=== PATIENT | male | born 1950 | race Caucasian/White ===

== ENCOUNTER 2022-01-15 00:07 | Inpatient (IN) ==
[2022-01-15 00:41] LABS: Basophils % 0.7 %; Hematocrit 36.9 % (37.5-50.1); Hemoglobin 12.8 g/dL (12.9-16.9); Immature Granulocytes % 1.3 % (0-4); Lymphocytes # 0.3 K/mcL (0.6-4.6); Lymphocytes % 8.5 %; Mean Corpuscular HGB Conc 34.7 g/dL (31.6-35.5); Mean Corpuscular Hemoglobin 27.8 pg (28.0-33.3); Mean Corpuscular Volume 80.2 fL (83.0-100.0); Mean Platelet Volume 9.1 fL (9.4-12.4); Monocytes # 0.1 K/mcL (0.0-1.3); Monocytes % 2.6 %; Platelet Count 261 K/mcL (140-400); Red Cell Distribution Width 21.1 % (11.5-14.5); Segmented Neutrophils % 85.9 %
[2022-01-15 00:42] LABS: Neutrophils # 2.7 K/mcL (1.6-8.9); White Blood Count 3.1 K/mcL (4.3-11.1)
[2022-01-15] MEDS ORDERED: Iopamidol - 370 500 ML MLS IVP ONE ×2 (01:02→02:12)
[2022-01-15 01:05] LABS: Alanine Aminotransferase 12 Units/L (7-52); Albumin 3.2 g/dL (3.5-5.7); Albumin/Globulin Ratio 1.2 (1.1-2.2); Alkaline Phosphatase 55 Units/L (34-104); Aspartate Amino Transferase 16 Units/L (13-39); BUN/Creatinine Ratio 30 (6-26); Bilirubin,Total 1.3 mg/dL (0.3-1.0); Blood Urea Nitrogen 22 mg/dL (8-23); Calcium 8.7 mg/dL (8.6-10.3); Carbon Dioxide 23 mEq/L (23-29); Chloride 95 mEq/L (98-107); Globulin 2.7 g/dL (2.4-3.5); Glucose 132 mg/dL (70-105); Magnesium 1.9 mg/dL (1.6-2.6); Osmolality,Calculated 279 (280-300); Phosphorous 3.4 mg/dL (2.7-4.5); Potassium 3.6 mEq/L (3.5-5.1); Sodium 132 mEq/L (136-145); Total Protein 5.9 g/dL (6.4-8.9); Uric Acid 8.4 mg/dL (2.3-7.6)
[2022-01-15 01:06] LABS: Troponin I 0.03 ng/mL (< 0.04)
[2022-01-15] MEDS ORDERED: 0.9 % Sodium Chloride 1,000 ML IVC ONE (01:36)
[2022-01-15 01:51] LABS: VBG HCO3 23 mEq/L (21-27); VBG PCO2 38 mmHg (41-51); VBG PO2 42 mmHg (25-50)
[2022-01-15 02:31] LABS: Adenovirus Not Detected (Not Detect); Bordetella Pertussis Not Detected (Not Detect); Chlamydophila pneumoniae Not Detected (Not Detect); Coronavirus 229E Not Detected (Not Detect); Coronavirus HKU1 Not Detected (Not Detect); Coronavirus NL63 Not Detected (Not Detect); Coronavirus OC43 Not Detected (Not Detect); Human Metapneumovirus Not Detected (Not Detect); Human Rhinovirus/Enterovirus Not Detected (Not Detect); Influenza A Subtype 2009 H1 Not Detected (Not Detect); Influenza B Not Detected (Not Detect); Mycoplasma pneumoniae Not Detected (Not Detect); Parainfluenza Virus 1 Not Detected (Not Detect); Parainfluenza Virus 2 Not Detected (Not Detect); Parainfluenza Virus 3 Not Detected (Not Detect); Parainfluenza Virus 4 Not Detected (Not Detect); Respiratory Syncytial Virus Not Detected (Not Detect); SARS-CoV-2 Not Detected (Not Detect)
[2022-01-15 03:26] LABS: Bilirubin,Urine Negative (Negative); Blood,Urine Large (Negative); Clarity,Urine Turbid (Clear); Color,Urine Yellow (Yellow); Glucose,Urine (UA) Normal (Normal); Ketones,Urine 60 mg/dL (Negative); Leukocyte Esterase,Urine Negative (Negative); Mucus,Urine Few per lpf (None-Few); Nitrite,Urine Negative (Negative); Protein,Urine 50 mg/dL (Neg-Trace); RBC,Urine TNTC per hpf (0-3); Specific Gravity,Urine > 1.030 (1.010-1.025); Urobilinogen,Urine Normal (Normal)
[2022-01-15] MEDS ORDERED: cefTRIAXone 1,000 MG in Water for inj. (sterile) 10 ML IVP ONE (03:55)
[2022-01-15] MEDS ORDERED: Naloxone 0.4 MG/ML INJ IVP PRN (05:22)
[2022-01-15 07:35] LABS: Bilirubin,Direct 0.5 mg/dL (0.0-0.2); Bilirubin,Indirect 0.6 mg/dL (0.0-1.0); Bilirubin,Total 1.1 mg/dL (0.3-1.0)
[2022-01-15 07:37] LABS: Magnesium 1.8 mg/dL (1.6-2.6)
[2022-01-15 07:49] LABS: Thyroid Stimulating Hormone 1.472 mcIU/mL (0.340-5.600)
[2022-01-15] MEDS ORDERED: Cefepime HCl 2,000 MG in 0.9 % Sodium Chloride 10 ML IVP SCH (08:00)
[2022-01-15] MEDS: Vancomycin Oral Soln 125 MG/2.5 ML UDC PO SCH ×4 (08:10→21:01)
[2022-01-15] MEDS: Ringers Solution, Lactated 1,000 ML IVC SCH ×2 (08:18→21:00)
[2022-01-15] MEDS: *HR* Heparin 5,000 UNIT/ML VIAL SQ SCH ×3 (08:23→21:01)
[2022-01-15] MEDS: Piperacillin/Tazobactam 3.375 GM in 0.9 % Sodium Chloride Mini Bag 100 ML IVPB SCH ×2 (08:26→17:27)
[2022-01-15] MEDS ORDERED: Diphenoxylate/Atropine 1 TAB TABLET PO ONE (09:18)
[2022-01-15] MEDS ORDERED: 0.9 % Sodium Chloride 1,000 ML IV ONE ×2 (13:25→16:30)
[2022-01-16] MEDS: Piperacillin/Tazobactam 3.375 GM in 0.9 % Sodium Chloride Mini Bag 100 ML IVPB SCH ×3 (00:10→16:01)
[2022-01-16 03:30] LABS: Hematocrit 32.6 % (37.5-50.1); Hemoglobin 11.1 g/dL (12.9-16.9); Mean Corpuscular Hemoglobin 27.8 pg (28.0-33.3); Mean Corpuscular Volume 81.7 fL (83.0-100.0); Mean Platelet Volume 9.6 fL (9.4-12.4); Monocytes # 0.1 K/mcL (0.0-1.3); Platelet Count 208 K/mcL (140-400); Red Blood Count 3.99 M/mcL (4.19-5.50); Red Cell Distribution Width 21.1 % (11.5-14.5); White Blood Count 3.1 K/mcL (4.3-11.1)
[2022-01-16 03:48] LABS: Alanine Aminotransferase 12 Units/L (7-52); Albumin 2.6 g/dL (3.5-5.7); Albumin/Globulin Ratio 1.2 (1.1-2.2); Alkaline Phosphatase 44 Units/L (34-104); Aspartate Amino Transferase 18 Units/L (13-39); BUN/Creatinine Ratio 29 (6-26); Bilirubin,Total 1.2 mg/dL (0.3-1.0); Blood Urea Nitrogen 15 mg/dL (8-23); Calcium 7.3 mg/dL (8.6-10.3); Carbon Dioxide 20 mEq/L (23-29); Chloride 102 mEq/L (98-107); Globulin 2.1 g/dL (2.4-3.5); Glucose 106 mg/dL (70-105); Osmolality,Calculated 279 (280-300); Potassium 3.5 mEq/L (3.5-5.1); Sodium 134 mEq/L (136-145); Total Protein 4.7 g/dL (6.4-8.9)
[2022-01-16 04:22] LABS: Eosinophils # 0.1 K/mcL (0.0-0.6); Lymphocytes # 0.3 K/mcL (0.6-4.6); Neutrophils # 2.7 K/mcL (1.6-8.9); Platelet Estimate Normal (Normal)
[2022-01-16 04:23] LABS: Anisocytosis 1+ (Not Present); Poikilocytosis 1+ (Not Present)
[2022-01-16] MEDS: *HR* Heparin 5,000 UNIT/ML VIAL SQ SCH ×3 (06:14→21:57)
[2022-01-16] MEDS: Vancomycin Oral Soln 125 MG/2.5 ML UDC PO SCH ×4 (08:26→21:58)
[2022-01-16] MEDS: Metoprolol XL (24 HR) Succ 50 MG TAB.ER.24H PO SCH (08:27)
[2022-01-16] MEDS: Aspirin Enteric Coated 81 MG Tablet PO SCH (08:27)
[2022-01-16] MEDS: 0.9 % Sodium Chloride 1,000 ML IVC SCH ×2 (11:26→16:00)
[2022-01-16] MEDS: Cholestyramine 4 GM POWD.PACK PO SCH ×2 (11:26→16:01)
[2022-01-16] MEDS ORDERED: 0.9 % Sodium Chloride 1,000 ML IV ONE (11:46)
[2022-01-16] MEDS ORDERED: 0.9 % Sodium Chloride 1,000 ML IVC SCH (12:00)
[2022-01-16] MEDS ORDERED: *HR* Metoprolol 5 MG/5 ML VIAL IVP ONE (12:08)
[2022-01-16] MEDS ORDERED: *HR* Metoprolol 5 MG/5 ML VIAL IVP PRN (13:05)
[2022-01-16] MEDS ORDERED: Cholestyramine 4 GM POWD.PACK PO SCH (16:30)
[2022-01-16] MEDS: Famotidine 20 MG TABLET PO SCH (18:07)
[2022-01-16] MEDS ORDERED: Famotidine 20 MG TABLET PO SCH (21:00)
[2022-01-16] MEDS: Ondansetron ODT 4 MG TAB.RAPDIS SL PRN (23:41)
[2022-01-17] MEDS: Piperacillin/Tazobactam 3.375 GM in 0.9 % Sodium Chloride Mini Bag 100 ML IVPB SCH ×4 (00:59→23:22)
[2022-01-17] MEDS: 0.9 % Sodium Chloride 1,000 ML IVC SCH ×3 (04:02→17:32)
[2022-01-17] MEDS: *HR* Heparin 5,000 UNIT/ML VIAL SQ SCH ×3 (06:15→20:26)
[2022-01-17] MEDS: Cholestyramine 4 GM POWD.PACK PO SCH ×2 (06:15→17:18)
[2022-01-17] MEDS: Metoprolol XL (24 HR) Succ 50 MG TAB.ER.24H PO SCH (09:47)
[2022-01-17] MEDS: Famotidine 20 MG TABLET PO SCH ×2 (09:47→20:26)
[2022-01-17] MEDS: Aspirin Enteric Coated 81 MG Tablet PO SCH (09:47)
[2022-01-17] MEDS: Vancomycin Oral Soln 125 MG/2.5 ML UDC PO SCH ×4 (09:47→20:26)
[2022-01-17 15:58] LABS: Basophils % 0.8 %; Eosinophils % 0.4 %; Hematocrit 30.8 % (37.5-50.1); Hemoglobin 10.6 g/dL (12.9-16.9); Immature Granulocytes % 6.1 % (0-4); Lymphocytes # 0.1 K/mcL (0.6-4.6); Lymphocytes % 5.7 %; Mean Corpuscular HGB Conc 34.4 g/dL (31.6-35.5); Mean Corpuscular Volume 81.3 fL (83.0-100.0); Mean Platelet Volume 9.7 fL (9.4-12.4); Monocytes # 0.1 K/mcL (0.0-1.3); Monocytes % 4.5 %; Platelet Count 170 K/mcL (140-400); Red Blood Count 3.79 M/mcL (4.19-5.50); Red Cell Distribution Width 21.2 % (11.5-14.5); Segmented Neutrophils % 82.5 %; White Blood Count 2.5 K/mcL (4.3-11.1)
[2022-01-17 16:01] LABS: Neutrophils # 2.1 K/mcL (1.6-8.9)
[2022-01-17 16:21] LABS: BUN/Creatinine Ratio 28 (6-26); Blood Urea Nitrogen 20 mg/dL (8-23); Calcium 7.1 mg/dL (8.6-10.3); Carbon Dioxide 18 mEq/L (23-29); Chloride 101 mEq/L (98-107); Glucose 103 mg/dL (70-105); Magnesium 1.6 mg/dL (1.6-2.6); Osmolality,Calculated 273 (280-300); Phosphorous 2.6 mg/dL (2.7-4.5); Potassium 3.5 mEq/L (3.5-5.1); Sodium 130 mEq/L (136-145)
[2022-01-17 16:43] LABS: Acanthocytes 1+ (Not Present)
[2022-01-17] MEDS: Budesonide/Formoterol 160/4.5 1 PUFF INH IH SCH (21:57)
[2022-01-18] MEDS: *HR* Heparin 5,000 UNIT/ML VIAL SQ SCH ×3 (05:12→20:22)
[2022-01-18] MEDS: Budesonide/Formoterol 160/4.5 1 PUFF INH IH SCH ×2 (07:31→19:59)
[2022-01-18] MEDS: Loratadine 10 MG TABLET PO SCH (09:53)
[2022-01-18] MEDS: Vancomycin Oral Soln 125 MG/2.5 ML UDC PO SCH ×4 (09:53→20:22)
[2022-01-18] MEDS: Aspirin Enteric Coated 81 MG Tablet PO SCH (09:53)
[2022-01-18] MEDS: Metoprolol XL (24 HR) Succ 50 MG TAB.ER.24H PO SCH (09:53)
[2022-01-18] MEDS: Famotidine 20 MG TABLET PO SCH ×2 (09:53→20:22)
[2022-01-18] MEDS: Piperacillin/Tazobactam 3.375 GM in 0.9 % Sodium Chloride Mini Bag 100 ML IVPB SCH (09:55)
[2022-01-18] MEDS: 0.9 % Sodium Chloride 1,000 ML IVC SCH ×2 (09:55→13:05)
[2022-01-18] MEDS: Cholestyramine 4 GM POWD.PACK PO SCH ×4 (10:09→20:22)
[2022-01-18] MEDS ORDERED: Iopamidol - 370 500 ML MLS IVP ONE (10:52)
[2022-01-18] MEDS ORDERED: 0.9 % Sodium Chloride 1,000 ML IVC ONE (10:54)
[2022-01-18] MEDS: Lactobacillus 1 EACH CAP.SPRINK PO SCH ×2 (12:03→20:22)
[2022-01-19] MEDS: 0.9 % Sodium Chloride 1,000 ML IVC SCH ×2 (01:19→11:00)
[2022-01-19 03:44] LABS: BUN/Creatinine Ratio 18 (6-26); Blood Urea Nitrogen 12 mg/dL (8-23); Calcium 7.5 mg/dL (8.6-10.3); Carbon Dioxide 20 mEq/L (23-29); Chloride 101 mEq/L (98-107); Glucose 102 mg/dL (70-105); Magnesium 2.1 mg/dL (1.6-2.6); Osmolality,Calculated 274 (280-300); Potassium 3.9 mEq/L (3.5-5.1); Sodium 132 mEq/L (136-145)
[2022-01-19] MEDS: *HR* Heparin 5,000 UNIT/ML VIAL SQ SCH ×3 (05:00→20:48)
[2022-01-19] MEDS: Budesonide/Formoterol 160/4.5 1 PUFF INH IH SCH ×2 (07:14→20:11)
[2022-01-19] MEDS: Cholestyramine 4 GM POWD.PACK PO SCH ×4 (07:35→20:47)
[2022-01-19] MEDS: Famotidine 20 MG TABLET PO SCH ×2 (07:36→20:48)
[2022-01-19] MEDS: Loratadine 10 MG TABLET PO SCH (07:36)
[2022-01-19] MEDS: Lactobacillus 1 EACH CAP.SPRINK PO SCH ×2 (07:36→20:47)
[2022-01-19] MEDS: Metoprolol XL (24 HR) Succ 50 MG TAB.ER.24H PO SCH (07:36)
[2022-01-19] MEDS: Aspirin Enteric Coated 81 MG Tablet PO SCH (07:36)
[2022-01-19] MEDS: Vancomycin Oral Soln 125 MG/2.5 ML UDC PO SCH ×4 (07:37→20:47)
[2022-01-19 10:47] LABS: Hematocrit 31.2 % (37.5-50.1); Hemoglobin 10.9 g/dL (12.9-16.9); Mean Corpuscular HGB Conc 34.9 g/dL (31.6-35.5); Mean Corpuscular Hemoglobin 28.2 pg (28.0-33.3); Mean Corpuscular Volume 80.8 fL (83.0-100.0); Mean Platelet Volume 9.9 fL (9.4-12.4); Platelet Count 188 K/mcL (140-400); Red Blood Count 3.86 M/mcL (4.19-5.50)
[2022-01-19 11:11] LABS: BUN/Creatinine Ratio 19 (6-26); Blood Urea Nitrogen 12 mg/dL (8-23); Calcium 7.5 mg/dL (8.6-10.3); Carbon Dioxide 19 mEq/L (23-29); Chloride 102 mEq/L (98-107); Glucose 124 mg/dL (70-105); Osmolality,Calculated 273 (280-300); Potassium 3.9 mEq/L (3.5-5.1); Sodium 131 mEq/L (136-145)
[2022-01-20] MEDS: *HR* Heparin 5,000 UNIT/ML VIAL SQ SCH ×3 (03:09→22:23)
[2022-01-20 03:33] LABS: Basophils % 0.5 %; Eosinophils % 0.1 %; Hematocrit 31.9 % (37.5-50.1); Hemoglobin 11.1 g/dL (12.9-16.9); Immature Granulocytes % 1.8 % (0-4); Lymphocytes # 0.1 K/mcL (0.6-4.6); Lymphocytes % 1.2 %; Mean Corpuscular HGB Conc 34.8 g/dL (31.6-35.5); Mean Corpuscular Hemoglobin 27.8 pg (28.0-33.3); Mean Corpuscular Volume 79.9 fL (83.0-100.0); Mean Platelet Volume 9.9 fL (9.4-12.4); Monocytes # 0.8 K/mcL (0.0-1.3); Monocytes % 11.2 %; Neutrophils # 6.3 K/mcL (1.6-8.9); Nucleated Red Blood Cells 0.3 /100 WBC (0); Platelet Count 210 K/mcL (140-400); Red Blood Count 3.99 M/mcL (4.19-5.50); Red Cell Distribution Width 22.1 % (11.5-14.5); Segmented Neutrophils % 85.2 %; White Blood Count 7.4 K/mcL (4.3-11.1)
[2022-01-20 03:43] LABS: BUN/Creatinine Ratio 18 (6-26); Blood Urea Nitrogen 12 mg/dL (8-23); Calcium 7.5 mg/dL (8.6-10.3); Carbon Dioxide 19 mEq/L (23-29); Chloride 102 mEq/L (98-107); Glucose 131 mg/dL (70-105); Magnesium 1.8 mg/dL (1.6-2.6); Osmolality,Calculated 272 (280-300); Potassium 3.8 mEq/L (3.5-5.1); Sodium 130 mEq/L (136-145)
[2022-01-20 05:05] LABS: Anisocytosis 3+ (Not Present); Burr Cells 1+ (Not Present); Hypochromasia Present (Not Present); Platelet Estimate Normal (Normal); Toxic Granulation Present (Not Present)
[2022-01-20] MEDS: Aspirin Enteric Coated 81 MG Tablet PO SCH (07:33)
[2022-01-20] MEDS: Metoprolol XL (24 HR) Succ 50 MG TAB.ER.24H PO SCH (07:33)
[2022-01-20] MEDS: Famotidine 20 MG TABLET PO SCH ×2 (07:33→22:22)
[2022-01-20] MEDS: Cholestyramine 4 GM POWD.PACK PO SCH ×4 (07:33→22:23)
[2022-01-20] MEDS: Lactobacillus 1 EACH CAP.SPRINK PO SCH ×2 (07:33→22:22)
[2022-01-20] MEDS: Vancomycin Oral Soln 125 MG/2.5 ML UDC PO SCH ×4 (07:33→22:54)
[2022-01-20] MEDS: Loratadine 10 MG TABLET PO SCH (07:33)
[2022-01-20] MEDS: Budesonide/Formoterol 160/4.5 1 PUFF INH IH SCH ×2 (07:58→20:16)
[2022-01-20] MEDS ORDERED: 0.9 % Sodium Chloride 1,000 ML IVC ONE (11:49)
[2022-01-20] MEDS ORDERED: 0.9 % Sodium Chloride 1,000 ML ONE (11:54)
[2022-01-20] MEDS ORDERED: 0.9 % Sodium Chloride 1,000 ML IVC SCH (14:15)
[2022-01-20] MEDS: D5% in 0.9% NACL 1,000 ML IVC SCH (15:43)
[2022-01-20] MEDS: *HR* OxyCODONE Immed Rel 5 MG TABLET PO PRN (22:53)
[2022-01-21 00:42] LABS: Adenovirus F 40/41 PCR Not detected (Not detect); Astrovirus PCR Not detected (Not detect); C.difficile Toxin A/B Gene PCR Not detected (Not detect); Campylobacter by PCR Not detected (Not detect); Cryptosporidium by PCR Not detected (Not detect); Cyclospora cayetanensis PCR Not detected (Not detect); Entamoeba histolytica PCR Not detected (Not detect); Enteroaggregative E.coli(EAEC) Not detected (Not detect); Enteropathogenic E.coli(EPEC) Not detected (Not detect); Enterotoxigenic E.coli (ETEC) Not detected (Not detect); Giardia lamblia PCR Not detected (Not detect); Norovirus GI/GII PCR Not detected (Not detect); Plesiomonas shigelloides PCR Not detected (Not detect); Rotavirus A PCR Not detected (Not detect); Salmonella PCR Not detected (Not detect); Sapovirus PCR Not detected (Not detect); Shig/EnteroinvasiveE coli EIEC Not detected (Not detect); Shigalike tox-prod E coli STEC Not detected (Not detect); Vibrio PCR Not detected (Not detect); Vibrio cholerae PCR Not detected (Not detect); Yersinia enterocolitica PCR Not detected (Not detect)
[2022-01-21] MEDS: D5% in 0.9% NACL 1,000 ML IVC SCH ×3 (02:05→21:22)
[2022-01-21 04:13] LABS: Hematocrit 35.8 % (37.5-50.1); Hemoglobin 12.3 g/dL (12.9-16.9); Mean Corpuscular HGB Conc 34.4 g/dL (31.6-35.5); Mean Corpuscular Hemoglobin 27.9 pg (28.0-33.3); Mean Corpuscular Volume 81.2 fL (83.0-100.0); Nucleated Red Blood Cells 0.5 /100 WBC (0); Platelet Count 213 K/mcL (140-400); Red Blood Count 4.41 M/mcL (4.19-5.50); Red Cell Distribution Width 23.9 % (11.5-14.5); White Blood Count 6.2 K/mcL (4.3-11.1)
[2022-01-21 04:30] LABS: BUN/Creatinine Ratio 16 (6-26); Blood Urea Nitrogen 13 mg/dL (8-23); Calcium 7.1 mg/dL (8.6-10.3); Carbon Dioxide 18 mEq/L (23-29); Chloride 103 mEq/L (98-107); Glucose 196 mg/dL (70-105); Osmolality,Calculated 276 (280-300); Sodium 130 mEq/L (136-145)
[2022-01-21 05:02] LABS: Burr Cells 1+ (Not Present); Lymphocytes # 0.7 K/mcL (0.6-4.6); Monocytes # 0.4 K/mcL (0.0-1.3); Neutrophils # 5.1 K/mcL (1.6-8.9); Platelet Estimate Normal (Normal)
[2022-01-21] MEDS: *HR* Heparin 5,000 UNIT/ML VIAL SQ SCH ×3 (05:36→21:20)
[2022-01-21] MEDS: Aspirin Enteric Coated 81 MG Tablet PO SCH (07:42)
[2022-01-21] MEDS: Famotidine 20 MG TABLET PO SCH ×2 (07:42→21:19)
[2022-01-21] MEDS: Metoprolol XL (24 HR) Succ 50 MG TAB.ER.24H PO SCH (07:42)
[2022-01-21] MEDS: Lactobacillus 1 EACH CAP.SPRINK PO SCH ×2 (07:42→21:19)
[2022-01-21] MEDS: Vancomycin Oral Soln 125 MG/2.5 ML UDC PO SCH ×4 (07:42→21:19)
[2022-01-21] MEDS: Loratadine 10 MG TABLET PO SCH (07:42)
[2022-01-21] MEDS: Cholestyramine 4 GM POWD.PACK PO SCH ×4 (07:43→21:13)
[2022-01-21] MEDS: Budesonide/Formoterol 160/4.5 1 PUFF INH IH SCH ×2 (10:43→20:14)
[2022-01-21] MEDS: Hydrocortisone Acetate 25 MG RECTAL SUPPOSITORY RC SCH ×2 (12:54→21:18)
[2022-01-21] MEDS ORDERED: Lidocaine Jelly 11 ml Syringe TP ONE (13:58)
[2022-01-21] MEDS: Ondansetron ODT 4 MG TAB.RAPDIS SL PRN (19:22)
[2022-01-22] MEDS: *HR* Heparin 5,000 UNIT/ML VIAL SQ SCH ×3 (02:32→22:08)
[2022-01-22 02:59] LABS: Basophils % 0.4 %; Eosinophils % 0.2 %; Hematocrit 26.5 % (37.5-50.1); Immature Granulocytes % 0.9 % (0-4); Lymphocytes # 0.1 K/mcL (0.6-4.6); Lymphocytes % 1.8 %; Mean Corpuscular HGB Conc 35.1 g/dL (31.6-35.5); Mean Corpuscular Hemoglobin 28.3 pg (28.0-33.3); Mean Corpuscular Volume 80.5 fL (83.0-100.0); Monocytes # 0.7 K/mcL (0.0-1.3); Monocytes % 15.5 %; Neutrophils # 3.7 K/mcL (1.6-8.9); Nucleated Red Blood Cells 0.4 /100 WBC (0); Platelet Count 155 K/mcL (140-400); Red Blood Count 3.29 M/mcL (4.19-5.50); Red Cell Distribution Width 23.3 % (11.5-14.5); Segmented Neutrophils % 81.2 %; White Blood Count 4.6 K/mcL (4.3-11.1)
[2022-01-22 03:03] LABS: Hemoglobin 9.3 g/dL (12.9-16.9)
[2022-01-22 03:23] LABS: Anisocytosis 2+ (Not Present); Burr Cells 1+ (Not Present); Microcytosis Present (Not Present); Platelet Estimate Normal (Normal)
[2022-01-22 03:24] LABS: Poikilocytosis 1+ (Not Present)
[2022-01-22 03:52] LABS: BUN/Creatinine Ratio 17 (6-26); Blood Urea Nitrogen 9 mg/dL (8-23); Carbon Dioxide 17 mEq/L (23-29); Chloride 109 mEq/L (98-107); Glucose 131 mg/dL (70-105); Magnesium 1.3 mg/dL (1.6-2.6); Osmolality,Calculated 274 (280-300); Phosphorous 1.4 mg/dL (2.7-4.5); Potassium 3.2 mEq/L (3.5-5.1); Sodium 132 mEq/L (136-145)
[2022-01-22] MEDS ORDERED: Calcium Gluconate 1gm/50mL 1 GM/50 ML BAG IVPB ONE (04:10)
[2022-01-22 05:43] LABS: Calcium 5.8 mg/dL (8.6-10.3)
[2022-01-22] MEDS: D5% in 0.9% NACL 1,000 ML IVC SCH ×2 (08:22→22:10)
[2022-01-22] MEDS: Cholestyramine 4 GM POWD.PACK PO SCH ×4 (08:22→22:11)
[2022-01-22] MEDS: Loratadine 10 MG TABLET PO SCH (10:14)
[2022-01-22] MEDS: Vancomycin Oral Soln 125 MG/2.5 ML UDC PO SCH ×4 (10:14→22:08)
[2022-01-22] MEDS: Metoprolol XL (24 HR) Succ 50 MG TAB.ER.24H PO SCH (10:15)
[2022-01-22] MEDS: Aspirin Enteric Coated 81 MG Tablet PO SCH (10:16)
[2022-01-22] MEDS: Lactobacillus 1 EACH CAP.SPRINK PO SCH ×2 (10:16→22:08)
[2022-01-22] MEDS: Famotidine 20 MG TABLET PO SCH ×2 (10:16→22:09)
[2022-01-22] MEDS: Budesonide/Formoterol 160/4.5 1 PUFF INH IH SCH ×2 (11:01→21:49)
[2022-01-22] MEDS ORDERED: D10% in Water 500 ML IVC PRN (11:16)
[2022-01-22] MEDS: Hydrocortisone Acetate 25 MG RECTAL SUPPOSITORY RC SCH ×2 (11:40→22:09)
[2022-01-22] MEDS: Lidocaine Jelly 6ml 1 APPL/6 ML JEL.PF.APP TP SCH ×2 (11:40→22:10)
[2022-01-22 12:55] LABS: Hemoglobin 10.7 g/dL (12.9-16.9)
[2022-01-22] MEDS: *HR* OxyCODONE Immed Rel 5 MG TABLET PO PRN ×2 (15:20→22:08)
[2022-01-22] MEDS: Fat Emulsion 250 ML IVPB SCH (16:56)
[2022-01-22] MEDS ORDERED: Clinimix E 5%-15% SOLUTION 2,000 ML with MVI, adult with vitamin K 10 ML IVC SCH (17:00)
[2022-01-23] MEDS: D5% in 0.9% NACL 1,000 ML IVC SCH ×2 (03:23→17:29)
[2022-01-23 03:53] LABS: Hematocrit 28.8 % (37.5-50.1); Hemoglobin 10.1 g/dL (12.9-16.9); Mean Corpuscular HGB Conc 35.1 g/dL (31.6-35.5); Mean Corpuscular Hemoglobin 28.4 pg (28.0-33.3); Mean Corpuscular Volume 80.9 fL (83.0-100.0); Mean Platelet Volume 10.1 fL (9.4-12.4); Monocytes # 0.4 K/mcL (0.0-1.3); Platelet Count 123 K/mcL (140-400); Red Blood Count 3.56 M/mcL (4.19-5.50); Red Cell Distribution Width 24.3 % (11.5-14.5)
[2022-01-23 04:16] LABS: Alanine Aminotransferase 25 Units/L (7-52); Albumin 1.9 g/dL (3.5-5.7); Albumin/Globulin Ratio 1.1 (1.1-2.2); Alkaline Phosphatase 59 Units/L (34-104); Aspartate Amino Transferase 25 Units/L (13-39); BUN/Creatinine Ratio 15 (6-26); Bilirubin,Total 3.5 mg/dL (0.3-1.0); Blood Urea Nitrogen 9 mg/dL (8-23); Calcium 6.8 mg/dL (8.6-10.3); Carbon Dioxide 18 mEq/L (23-29); Chloride 104 mEq/L (98-107); Globulin 1.8 g/dL (2.4-3.5); Glucose 166 mg/dL (70-105); Magnesium 1.6 mg/dL (1.6-2.6); Osmolality,Calculated 270 (280-300); Phosphorous 1.1 mg/dL (2.7-4.5); Potassium 3.5 mEq/L (3.5-5.1); Sodium 129 mEq/L (136-145); Total Protein 3.7 g/dL (6.4-8.9); Triglycerides 154 mg/dL (< 150)
[2022-01-23] MEDS: *HR* Heparin 5,000 UNIT/ML VIAL SQ SCH ×3 (05:22→21:33)
[2022-01-23 05:26] LABS: Anisocytosis 1+ (Not Present); Eosinophils # 0.1 K/mcL (0.0-0.6); Neutrophils # 3.1 K/mcL (1.6-8.9); Platelet Estimate Slight Decrease (Normal)
[2022-01-23 05:27] LABS: Burr Cells 1+ (Not Present); Toxic Granulation Present (Not Present); Toxic Vacuolation Present (Not Present)
[2022-01-23] MEDS: Cholestyramine 4 GM POWD.PACK PO SCH ×4 (07:48→21:33)
[2022-01-23] MEDS: Lidocaine Jelly 6ml 1 APPL/6 ML JEL.PF.APP TP SCH ×2 (07:57→21:33)
[2022-01-23] MEDS: Lactobacillus 1 EACH CAP.SPRINK PO SCH ×2 (08:01→21:32)
[2022-01-23] MEDS: Aspirin Enteric Coated 81 MG Tablet PO SCH (08:01)
[2022-01-23] MEDS: Metoprolol XL (24 HR) Succ 50 MG TAB.ER.24H PO SCH (08:01)
[2022-01-23] MEDS: Famotidine 20 MG TABLET PO SCH ×2 (08:02→21:33)
[2022-01-23] MEDS: Loratadine 10 MG TABLET PO SCH (08:02)
[2022-01-23] MEDS: Hydrocortisone Acetate 25 MG RECTAL SUPPOSITORY RC SCH ×2 (08:05→21:32)
[2022-01-23] MEDS: Vancomycin Oral Soln 125 MG/2.5 ML UDC PO SCH ×4 (08:12→21:33)
[2022-01-23] MEDS: Budesonide/Formoterol 160/4.5 1 PUFF INH IH SCH ×2 (10:48→22:10)
[2022-01-23] MEDS ORDERED: Clinimix E 5%-15% SOLUTION 2,000 ML with MVI, adult with vitamin K 10 ML IVC SCH (17:00)
[2022-01-23] MEDS: Fat Emulsion 250 ML IVPB SCH (17:49)
[2022-01-23] MEDS ORDERED: *HR* Propofol 200 MG/20 ML VIAL IVP ONE (19:42)
[2022-01-23] MEDS ORDERED: Lidocaine -MPF 2% 5 ML VIAL ONE (19:43)
[2022-01-23] MEDS ORDERED: 0.9 % Sodium Chloride 250 ML IVC ONE (21:54)
[2022-01-23] MEDS ORDERED: 0.9 % Sodium Chloride 250 ML ONE (21:54)
[2022-01-23] MEDS ORDERED: Ipratropium/Albuterol Neb 3 ML IH ONE (23:55)
[2022-01-24 00:32] LABS: ABG Base Excess -8 mEq/L (-2 to 3); ABG HCO3 15 mEq/L (21-27); ABG Oxygen Saturation 85 % (95-98); ABG PCO2 24 mmHg (35-45); ABG PO2 48 mmHg (85-104); ABG TCO2 16 mEq/L (20-26)
[2022-01-24] MEDS ORDERED: levoFLOXacin 750 MG/150 ML 750 MG/150 ML BAG IVPB SCH (01:00)
[2022-01-24] MEDS ORDERED: 0.9 % Sodium Chloride 500 ML IVC ONE ×2 (02:05→09:39)
[2022-01-24] MEDS: Pantoprazole 40 MG VIAL IVP SCH ×2 (06:03→17:23)
[2022-01-24] MEDS: *HR* Heparin 5,000 UNIT/ML VIAL SQ SCH ×3 (06:03→21:46)
[2022-01-24] MEDS: Lidocaine Jelly 6ml 1 APPL/6 ML JEL.PF.APP TP SCH ×2 (08:33→21:45)
[2022-01-24] MEDS: Vancomycin Oral Soln 125 MG/2.5 ML UDC PO SCH (08:37)
[2022-01-24] MEDS: Aspirin Enteric Coated 81 MG Tablet PO SCH (08:38)
[2022-01-24] MEDS: Hydrocortisone Acetate 25 MG RECTAL SUPPOSITORY RC SCH ×2 (08:38→21:44)
[2022-01-24] MEDS: Loratadine 10 MG TABLET PO SCH (08:38)
[2022-01-24] MEDS: Lactobacillus 1 EACH CAP.SPRINK PO SCH ×2 (08:38→21:44)
[2022-01-24] MEDS: Famotidine 20 MG TABLET PO SCH ×2 (08:38→21:45)
[2022-01-24] MEDS: Cholestyramine 4 GM POWD.PACK PO SCH ×4 (08:38→21:45)
[2022-01-24 09:06] LABS: Hematocrit 28.7 % (37.5-50.1); Immature Platelets 7.6 % (1.1-6.1); Mean Corpuscular HGB Conc 34.8 g/dL (31.6-35.5); Mean Corpuscular Hemoglobin 28.6 pg (28.0-33.3); Mean Platelet Volume 11.2 fL (9.4-12.4); Red Blood Count 3.5 M/mcL (4.19-5.50)
[2022-01-24 09:20] LABS: Alanine Aminotransferase 24 Units/L (7-52); Albumin 1.7 g/dL (3.5-5.7); Albumin/Globulin Ratio 1.1 (1.1-2.2); Alkaline Phosphatase 61 Units/L (34-104); Aspartate Amino Transferase 22 Units/L (13-39); BUN/Creatinine Ratio 29 (6-26); Bilirubin,Total 4.1 mg/dL (0.3-1.0); Blood Urea Nitrogen 20 mg/dL (8-23); Calcium 6.7 mg/dL (8.6-10.3); Carbon Dioxide 18 mEq/L (23-29); Chloride 106 mEq/L (98-107); Globulin 1.6 g/dL (2.4-3.5); Glucose 134 mg/dL (70-105); Magnesium 1.5 mg/dL (1.6-2.6); Osmolality,Calculated 275 (280-300); Phosphorous 1.5 mg/dL (2.7-4.5); Potassium 3.3 mEq/L (3.5-5.1); Sodium 130 mEq/L (136-145); Total Protein 3.3 g/dL (6.4-8.9)
[2022-01-24] MEDS ORDERED: Potassium Phosphate 44 MEQ in 0.9 % Sodium Chloride 250 ML IVPB ONE (09:50)
[2022-01-24] MEDS: Budesonide/Formoterol 160/4.5 1 PUFF INH IH SCH ×2 (11:24→21:39)
[2022-01-24] MEDS: Piperacillin/Tazobactam 3.375 GM in 0.9 % Sodium Chloride Mini Bag 100 ML IVPB SCH ×2 (15:48→23:48)
[2022-01-24] MEDS ORDERED: Clinimix E 5%-15% SOLUTION 2,000 ML with MVI, adult with vitamin K 10 ML IVC SCH (17:00)
[2022-01-24] MEDS: Fat Emulsion 250 ML IVPB SCH (17:24)
[2022-01-25 04:27] LABS: Hematocrit 25.9 % (37.5-50.1); Immature Platelets 9.5 % (1.1-6.1); Mean Corpuscular HGB Conc 34.7 g/dL (31.6-35.5); Mean Corpuscular Hemoglobin 32.7 pg (28.0-33.3); Mean Corpuscular Volume 94.2 fL (83.0-100.0); Mean Platelet Volume 11.5 fL (9.4-12.4); Monocytes # 0.3 K/mcL (0.0-1.3); Red Blood Count 2.75 M/mcL (4.19-5.50); White Blood Count 6.4 K/mcL (4.3-11.1)
[2022-01-25 04:29] LABS: Platelet Count 53 K/mcL (140-400)
[2022-01-25 04:57] LABS: Lymphocytes # 0.3 K/mcL (0.6-4.6); Neutrophils # 5.9 K/mcL (1.6-8.9); Platelet Estimate Decreased (Normal)
[2022-01-25 04:58] LABS: Anisocytosis 2+ (Not Present); Toxic Granulation Present (Not Present)
[2022-01-25] MEDS: *HR* Heparin 5,000 UNIT/ML VIAL SQ SCH ×3 (05:40→20:36)
[2022-01-25] MEDS: Piperacillin/Tazobactam 3.375 GM in 0.9 % Sodium Chloride Mini Bag 100 ML IVPB SCH ×3 (05:41→23:22)
[2022-01-25] MEDS: Pantoprazole 40 MG VIAL IVP SCH ×2 (05:42→17:59)
[2022-01-25] MEDS: Cholestyramine 4 GM POWD.PACK PO SCH ×4 (05:42→20:26)
[2022-01-25] MEDS: Budesonide/Formoterol 160/4.5 1 PUFF INH IH SCH ×2 (07:40→20:04)
[2022-01-25] MEDS: Lactobacillus 1 EACH CAP.SPRINK PO SCH ×2 (08:37→20:26)
[2022-01-25] MEDS: Loratadine 10 MG TABLET PO SCH (08:37)
[2022-01-25] MEDS: Aspirin Enteric Coated 81 MG Tablet PO SCH (08:37)
[2022-01-25] MEDS: Famotidine 20 MG TABLET PO SCH ×2 (08:38→20:26)
[2022-01-25] MEDS ORDERED: Chlorhexidine Rinse 15 ML MOUTHWASH MM SCH (10:00)
[2022-01-25 11:53] LABS: Alanine Aminotransferase 23 Units/L (7-52); Albumin 1.7 g/dL (3.5-5.7); Alkaline Phosphatase 63 Units/L (34-104); Aspartate Amino Transferase 27 Units/L (13-39); BUN/Creatinine Ratio 38 (6-26); Bilirubin,Total 4.2 mg/dL (0.3-1.0); Blood Urea Nitrogen 22 mg/dL (8-23); Calcium 6.8 mg/dL (8.6-10.3); Carbon Dioxide 18 mEq/L (23-29); Chloride 107 mEq/L (98-107); Globulin 1.7 g/dL (2.4-3.5); Glucose 187 mg/dL (70-105); Magnesium 1.6 mg/dL (1.6-2.6); Osmolality,Calculated 282 (280-300); Phosphorous 1.8 mg/dL (2.7-4.5); Potassium 3.1 mEq/L (3.5-5.1); Sodium 132 mEq/L (136-145); Total Protein 3.4 g/dL (6.4-8.9)
[2022-01-25] MEDS: Lidocaine Jelly 6ml 1 APPL/6 ML JEL.PF.APP TP SCH ×2 (12:24→20:36)
[2022-01-25] MEDS: Hydrocortisone Acetate 25 MG RECTAL SUPPOSITORY RC SCH ×2 (12:24→20:35)
[2022-01-25] MEDS ORDERED: Potassium Phosphate 44 MEQ in 0.9 % Sodium Chloride 250 ML IVPB ONE (12:34)
[2022-01-25] MEDS: Ipratropium/Albuterol Neb 3 ML IH SCH ×3 (15:46→23:20)
[2022-01-25] MEDS ORDERED: Clinimix E 5%-15% SOLUTION 2,000 ML with MVI, adult with vitamin K 10 ML IVC SCH (17:00)
[2022-01-25] MEDS: Magic Mouthwash 10 ML UD Cup PO SCH (18:00)
[2022-01-25] MEDS: Fat Emulsion 250 ML IVPB SCH (18:04)
[2022-01-26 02:45] LABS: Hematocrit 23.7 % (37.5-50.1); Hemoglobin 8.5 g/dL (12.9-16.9)
[2022-01-26 02:47] LABS: Hematocrit 23.7 % (37.5-50.1); Red Blood Count 2.97 M/mcL (4.19-5.50)
[2022-01-26 02:50] LABS: Hemoglobin 8.6 g/dL (12.9-16.9); Immature Platelets 10.2 % (1.1-6.1); Lymphocytes # 0.1 K/mcL (0.6-4.6); Mean Corpuscular HGB Conc 36.3 g/dL (31.6-35.5); Mean Corpuscular Volume 79.8 fL (83.0-100.0); Monocytes # 0.1 K/mcL (0.0-1.3); Red Cell Distribution Width 25.2 % (11.5-14.5); White Blood Count 6.2 K/mcL (4.3-11.1)
[2022-01-26 02:52] LABS: Platelet Count 50 K/mcL (140-400)
[2022-01-26 03:02] LABS: Alanine Aminotransferase 27 Units/L (7-52); Albumin 1.6 g/dL (3.5-5.7); Albumin/Globulin Ratio 0.9 (1.1-2.2); Alkaline Phosphatase 66 Units/L (34-104); Aspartate Amino Transferase 32 Units/L (13-39); BUN/Creatinine Ratio 34 (6-26); Blood Urea Nitrogen 24 mg/dL (8-23); Calcium 6.8 mg/dL (8.6-10.3); Carbon Dioxide 20 mEq/L (23-29); Chloride 107 mEq/L (98-107); Globulin 1.8 g/dL (2.4-3.5); Glucose 181 mg/dL (70-105); Magnesium 1.6 mg/dL (1.6-2.6); Osmolality,Calculated 285 (280-300); Phosphorous 2.2 mg/dL (2.7-4.5); Potassium 3.3 mEq/L (3.5-5.1); Sodium 133 mEq/L (136-145); Total Protein 3.4 g/dL (6.4-8.9)
[2022-01-26 03:25] LABS: Anisocytosis 3+ (Not Present); Eosinophils # 0.1 K/mcL (0.0-0.6); Hypochromasia Present (Not Present); Neutrophils # 5.8 K/mcL (1.6-8.9); Platelet Estimate Marked Decrease (Normal)
[2022-01-26 03:26] LABS: Toxic Granulation Present (Not Present)
[2022-01-26] MEDS: Ipratropium/Albuterol Neb 3 ML IH SCH ×6 (04:00→23:12)
[2022-01-26] MEDS: *HR* Heparin 5,000 UNIT/ML VIAL SQ SCH ×2 (05:19→12:45)
[2022-01-26] MEDS: Pantoprazole 40 MG VIAL IVP SCH ×2 (05:19→18:23)
[2022-01-26] MEDS ORDERED: 0.9 % Sodium Chloride 1,000 ML ONE ×2 (05:30→08:23)
[2022-01-26] MEDS ORDERED: Ipratropium/Albuterol Neb 3 ML IH ONE (05:31)
[2022-01-26] MEDS ORDERED: 0.9 % Sodium Chloride 500 ML IVC ONE (05:39)
[2022-01-26] MEDS ORDERED: Albumin 25% 25gram/100mL 25 GM/100 ML IV.SOLN IVPB ONE (05:39)
[2022-01-26] MEDS ORDERED: Potassium Phosphate 44 MEQ in 0.9 % Sodium Chloride 250 ML IVPB ONE (07:00)
[2022-01-26] MEDS ORDERED: MethylPREDNISolone 40 MG/ML VIAL IVP SCH (08:00)
[2022-01-26] MEDS: Budesonide/Formoterol 160/4.5 1 PUFF INH IH SCH ×2 (08:11→20:15)
[2022-01-26] MEDS ORDERED: 0.9 % Sodium Chloride 1,000 ML IV ONE ×2 (08:36→08:38)
[2022-01-26] MEDS: Lidocaine Jelly 6ml 1 APPL/6 ML JEL.PF.APP TP SCH (08:48)
[2022-01-26] MEDS: Piperacillin/Tazobactam 3.375 GM in 0.9 % Sodium Chloride Mini Bag 100 ML IVPB SCH ×3 (08:53→22:37)
[2022-01-26] MEDS: Magic Mouthwash 10 ML UD Cup PO SCH ×3 (08:55→17:58)
[2022-01-26] MEDS: Cholestyramine 4 GM POWD.PACK PO SCH ×5 (08:55→21:18)
[2022-01-26] MEDS: Aspirin Enteric Coated 81 MG Tablet PO SCH (09:44)
[2022-01-26] MEDS: Famotidine 20 MG TABLET PO SCH (09:44)
[2022-01-26] MEDS: Loratadine 10 MG TABLET PO SCH (09:44)
[2022-01-26] MEDS: Lactobacillus 1 EACH CAP.SPRINK PO SCH ×2 (09:44→21:18)
[2022-01-26 09:58] LABS: Hematocrit 20.6 % (37.5-50.1); Hemoglobin 7.2 g/dL (12.9-16.9)
[2022-01-26] MEDS: MethylPREDNISolone 40 MG/ML VIAL IVP SCH ×2 (12:45→17:58)
[2022-01-26] MEDS ORDERED: 0.9 % Sodium Chloride 250 ML ONE (14:46)
[2022-01-26] MEDS ORDERED: Clinimix E 5%-20% SOLUTION 2,000 ML with MVI, adult with vitamin K 10 ML IVC SCH (17:00)
[2022-01-26] MEDS: Fat Emulsion 250 ML IVPB SCH (17:58)
[2022-01-26] MEDS: Insulin LISPRO 300 UNITS/3 ML VIAL SUBQ SCH (18:24)
[2022-01-26 21:44] LABS: Hematocrit 23.8 % (37.5-50.1); Hematocrit 24.1 % (37.5-50.1); Hemoglobin 8.4 g/dL (12.9-16.9); Hemoglobin 8.5 g/dL (12.9-16.9); Mean Corpuscular HGB Conc 35.3 g/dL (31.6-35.5); Mean Corpuscular Volume 82.1 fL (83.0-100.0); Mean Platelet Volume 12.6 fL (9.4-12.4); Red Cell Distribution Width 25.9 % (11.5-14.5); White Blood Count 4.1 K/mcL (4.3-11.1)
[2022-01-26 21:45] LABS: Platelet Count 47 K/mcL (140-400)
[2022-01-27] MEDS: Ipratropium/Albuterol Neb 3 ML IH SCH ×6 (04:20→23:48)
[2022-01-27] MEDS: Insulin LISPRO 300 UNITS/3 ML VIAL SUBQ SCH ×4 (05:10→17:57)
[2022-01-27] MEDS: MethylPREDNISolone 40 MG/ML VIAL IVP SCH ×4 (05:49→17:57)
[2022-01-27] MEDS: Pantoprazole 40 MG VIAL IVP SCH ×2 (05:50→17:57)
[2022-01-27] MEDS: Budesonide/Formoterol 160/4.5 1 PUFF INH IH SCH ×2 (07:27→20:39)
[2022-01-27] MEDS: Piperacillin/Tazobactam 3.375 GM in 0.9 % Sodium Chloride Mini Bag 100 ML IVPB SCH ×3 (08:15→23:14)
[2022-01-27] MEDS: Magic Mouthwash 10 ML UD Cup PO SCH ×3 (08:16→17:56)
[2022-01-27] MEDS ORDERED: Furosemide 40 MG/4 ML VIAL IVP ONE (09:22)
[2022-01-27 11:20] LABS: ABG Base Excess -6 mEq/L (-2 to 3); ABG HCO3 17 mEq/L (21-27); ABG Oxygen Saturation 97 % (95-98); ABG PCO2 27 mmHg (35-45); ABG PH 7.42 pH Units (7.32-7.45); ABG PO2 90 mmHg (85-104); ABG TCO2 18 mEq/L (20-26)
[2022-01-27] MEDS: Cholestyramine 4 GM POWD.PACK PO SCH ×4 (13:23→19:55)
[2022-01-27] MEDS: Lactobacillus 1 EACH CAP.SPRINK PO SCH ×2 (13:24→19:55)
[2022-01-27] MEDS: Aspirin Enteric Coated 81 MG Tablet PO SCH (13:24)
[2022-01-27] MEDS: Loratadine 10 MG TABLET PO SCH (13:24)
[2022-01-27 14:25] LABS: Nucleated Red Blood Cells 0.4 /100 WBC (0); Red Cell Distribution Width 25.2 % (11.5-14.5)
[2022-01-27 14:27] LABS: Hematocrit 27.5 % (37.5-50.1); Hemoglobin 9.7 g/dL (12.9-16.9); Immature Platelets 14.3 % (1.1-6.1); Lymphocytes # 0.1 K/mcL (0.6-4.6); Mean Corpuscular HGB Conc 35.3 g/dL (31.6-35.5); Mean Corpuscular Hemoglobin 28.9 pg (28.0-33.3); Mean Corpuscular Volume 81.8 fL (83.0-100.0); Monocytes # 0.2 K/mcL (0.0-1.3); Red Blood Count 3.36 M/mcL (4.19-5.50); White Blood Count 4.7 K/mcL (4.3-11.1)
[2022-01-27 15:00] LABS: Folate 7.5 ng/mL (3.0-16.0)
[2022-01-27 15:03] LABS: Platelet Count 42 K/mcL (140-400)
[2022-01-27 15:09] LABS: % Iron Saturation 10 % (20-55); Ferritin 1122 ng/mL (20-250); Iron 14 mcg/dL (65-175); Transferrin 102 mg/dL (203-362); Vitamin B12 > 1500 pg/mL (250-1100)
[2022-01-27 15:38] LABS: Alanine Aminotransferase 32 Units/L (7-52); Albumin/Globulin Ratio 1.1 (1.1-2.2); Alkaline Phosphatase 79 Units/L (34-104); Aspartate Amino Transferase 39 Units/L (13-39); BUN/Creatinine Ratio 37 (6-26); Bilirubin,Total 6.2 mg/dL (0.3-1.0); Blood Urea Nitrogen 25 mg/dL (8-23); Calcium 6.9 mg/dL (8.6-10.3); Carbon Dioxide 19 mEq/L (23-29); Chloride 111 mEq/L (98-107); Globulin 1.9 g/dL (2.4-3.5); Glucose 259 mg/dL (70-105); Osmolality,Calculated 295 (280-300); Phosphorous 2.1 mg/dL (2.7-4.5); Potassium 4.2 mEq/L (3.5-5.1); Sodium 136 mEq/L (136-145); Total Protein 3.9 g/dL (6.4-8.9)
[2022-01-27 15:44] LABS: Neutrophils # 4.4 K/mcL (1.6-8.9)
[2022-01-27 15:47] LABS: Anisocytosis 1+ (Not Present); Hypochromasia Present (Not Present); Platelet Estimate Marked Decrease (Normal); Poikilocytosis 1+ (Not Present); Polychromasia 1+ (Not Present)
[2022-01-27] MEDS ORDERED: Clinimix E 5%-20% SOLUTION 2,000 ML with MVI, adult with vitamin K 10 ML IVC SCH (17:00)
[2022-01-27] MEDS: Fat Emulsion 250 ML IVPB SCH (17:56)
[2022-01-28] MEDS: Insulin LISPRO 300 UNITS/3 ML VIAL SUBQ SCH ×4 (01:23→16:49)
[2022-01-28] MEDS: MethylPREDNISolone 40 MG/ML VIAL IVP SCH ×4 (01:31→16:48)
[2022-01-28 03:42] LABS: Nucleated Red Blood Cells 0.3 /100 WBC (0)
[2022-01-28 03:44] LABS: Hemoglobin 9.1 g/dL (12.9-16.9); Immature Platelets 15.9 % (1.1-6.1); Mean Corpuscular Hemoglobin 28.8 pg (28.0-33.3); Mean Corpuscular Volume 82.3 fL (83.0-100.0); Monocytes # 0.2 K/mcL (0.0-1.3); Red Blood Count 3.16 M/mcL (4.19-5.50); Red Cell Distribution Width 25.6 % (11.5-14.5); White Blood Count 7.8 K/mcL (4.3-11.1)
[2022-01-28 03:47] LABS: Platelet Count 46 K/mcL (140-400)
[2022-01-28 03:59] LABS: BUN/Creatinine Ratio 39 (6-26); Blood Urea Nitrogen 29 mg/dL (8-23); Calcium 6.9 mg/dL (8.6-10.3); Carbon Dioxide 20 mEq/L (23-29); Chloride 107 mEq/L (98-107); Glucose 235 mg/dL (70-105); Osmolality,Calculated 291 (280-300); Phosphorous 2.2 mg/dL (2.7-4.5); Potassium 4.3 mEq/L (3.5-5.1); Sodium 134 mEq/L (136-145)
[2022-01-28] MEDS: Ipratropium/Albuterol Neb 3 ML IH SCH ×6 (04:32→23:39)
[2022-01-28 04:59] LABS: Anisocytosis 2+ (Not Present); Lymphocytes # 0.5 K/mcL (0.6-4.6); Microcytosis Present (Not Present); Platelet Estimate Decreased (Normal)
[2022-01-28] MEDS: Pantoprazole 40 MG VIAL IVP SCH ×2 (05:50→16:48)
[2022-01-28] MEDS: Budesonide/Formoterol 160/4.5 1 PUFF INH IH SCH ×2 (07:20→20:07)
[2022-01-28] MEDS: Magic Mouthwash 10 ML UD Cup PO SCH ×3 (08:37→15:59)
[2022-01-28] MEDS: *HR* OxyCODONE Immed Rel 5 MG TABLET PO PRN (08:37)
[2022-01-28] MEDS: Piperacillin/Tazobactam 3.375 GM in 0.9 % Sodium Chloride Mini Bag 100 ML IVPB SCH ×3 (08:38→23:48)
[2022-01-28] MEDS ORDERED: 0.9 % Sodium Chloride 1,000 ML IVC ONE (09:39)
[2022-01-28] MEDS ORDERED: Fluconazole 400 MG/200 ML 400 MG/200 ML BAG IVPB SCH (09:45)
[2022-01-28] MEDS: Lactobacillus 1 EACH CAP.SPRINK PO SCH ×2 (11:51→21:43)
[2022-01-28] MEDS: Cholestyramine 4 GM POWD.PACK PO SCH ×4 (11:51→21:44)
[2022-01-28] MEDS: Loratadine 10 MG TABLET PO SCH (11:51)
[2022-01-28] MEDS ORDERED: Iron Sucrose Complex 200 MG in 0.9 % Sodium Chloride 100 ML IVPB SCH (14:15)
[2022-01-28] MEDS: Fat Emulsion 250 ML IVPB SCH (16:49)
[2022-01-28] MEDS ORDERED: Clinimix E 5%-20% SOLUTION 2,000 ML with MVI, adult with vitamin K 10 ML IVC SCH (17:00)
[2022-01-28] MEDS ORDERED: 0.9 % Sodium Chloride 1,000 ML ONE (17:03)
[2022-01-28] MEDS ORDERED: 0.9 % Sodium Chloride 1,000 ML IVC SCH (17:15)
[2022-01-28] MEDS ORDERED: 0.9 % Sodium Chloride 500 ML ONE (21:32)
[2022-01-28] MEDS ORDERED: 0.9 % Sodium Chloride 500 ML IVC ONE (21:33)
[2022-01-28] MEDS ORDERED: Albumin 25% 25gram/100mL 25 GM/100 ML IV.SOLN ONE (22:00)
[2022-01-29] MEDS: Insulin LISPRO 300 UNITS/3 ML VIAL SUBQ SCH
[2022-01-29] MEDS: MethylPREDNISolone 40 MG/ML VIAL IVP SCH
[2022-01-29] MEDS ORDERED: Albumin 25% 25gram/100mL 25 GM/100 ML IV.SOLN IVPB SCH
[2022-01-29] MEDS ORDERED: Morphine Sulfate 2 MG/ML SYRINGE IVP PRN (00:55)
[2022-01-29] MEDS ORDERED: Haloperidol Lactate 5 MG/ML VIAL IVP PRN (00:55)
[2022-01-29] MEDS ORDERED: *HR* LORazepam 2 MG/ML VIAL IVP PRN (00:55)
[2022-01-29] MEDS ORDERED: Scopolamine Patch 1.5 MG PATCH.TD72 TD SCH (01:00)
[2022-01-29] MEDS: Ipratropium/Albuterol Neb 3 ML IH SCH ×5 (04:19→20:45)
[2022-01-29] MEDS: Pantoprazole 40 MG VIAL IVP SCH ×2 (05:14→17:32)
[2022-01-29] MEDS: Budesonide/Formoterol 160/4.5 1 PUFF INH IH SCH ×2 (08:01→20:45)
[2022-01-29] MEDS: Loratadine 10 MG TABLET PO SCH (09:10)
[2022-01-29] MEDS: Lactobacillus 1 EACH CAP.SPRINK PO SCH (09:10)
[2022-01-29] MEDS: Magic Mouthwash 10 ML UD Cup PO SCH ×3 (09:25→17:32)
[2022-01-29] MEDS ORDERED: GuaiFENesin/Dextromethorphan TABLET PO PRN (10:34)
[2022-01-29] MEDS: Morphine Sulfate 2 MG/ML SYRINGE IVP PRN ×4 (11:13→20:01)
[2022-01-30] MEDS: Ipratropium/Albuterol Neb 3 ML IH SCH ×6 (00:37→19:49)
[2022-01-30] MEDS: *HR* OxyCODONE Immed Rel 5 MG TABLET PO PRN (02:03)
[2022-01-30] MEDS: Pantoprazole 40 MG VIAL IVP SCH ×2 (05:08→14:55)
[2022-01-30] MEDS: Budesonide/Formoterol 160/4.5 1 PUFF INH IH SCH ×2 (07:46→19:49)
[2022-01-30] MEDS: Magic Mouthwash 10 ML UD Cup PO SCH ×3 (09:32→14:55)
[2022-01-30] MEDS ORDERED: Atropine Sulfate 1% 40 DROP/2 ML BOTTLE SL PRN (09:39)
[2022-01-30] MEDS: Morphine Sulfate 2 MG/ML SYRINGE IVP PRN ×5 (10:46→22:08)
[2022-01-30] MEDS: *HR* LORazepam 2 MG/ML VIAL IVP PRN ×2 (18:08→23:35)
[2022-01-30 19:27] VITALS: BP 63/37; PULSE 105; TEMP 97.8; O2SAT 85
[2022-01-31] MEDS: Ipratropium/Albuterol Neb 3 ML IH SCH ×2 (00:24→03:41)
== END 2022-01-31 05:01 | disposition expired | DRG 871 ==
LOC: 3BNU 00:07 → EMEROOARM 00:07 → 3BNU 05:42 → SUATTDRO 05:45 → 2NENU 01-24 23:32
PROVIDERS: ADMIT Internal Medicine; ATTEND Internal Medicine
PROC: ENDOEBX (2022-01-23 09:20)